=== PATIENT | female | born 1955 | race Caucasian/White ===

== ENCOUNTER 2018-03-23 12:07 | Emergency (ER) | payer BC ==
[~2018-03-23] VITALS: Ht 157.5 cm; Wt 50.0 kg
[2018-03-23 12:27] VITALS: BP 103/41
== END 2018-03-23 14:51 | disposition home or self-care (01) ==
LOC: ER 12:08
DX: S62.391A Other fracture of second metacarpal bone, left hand, initial encounter for closed fracture (principal); W23.1XXA Caught, crushed, jammed, or pinched between stationary objects, initial encounter; Y93.89 Activity, other specified; Y92.89 Other specified places as the place of occurrence of the external cause; Y99.8 Other external cause status
CPT/HCPCS: 29125; 73130; 99283